=== PATIENT | female | born 1995 | race Caucasian/White ===

== ENCOUNTER → 2020-02-08 12:08 | Outpatient (CLI) | payer OTHER, SELFPAY ==
--- NOTE | 2020-02-08 12:11 | DI.RAD.S_ITS ---
PROCEDURE: XR ANKLE RT MIN 3V INDICATIONS: ankle pain TECHNIQUE: 3 views of the ankle were acquired. COMPARISON: None. FINDINGS: Bones: No fractures or dislocations. Ankle mortise is normally aligned. No suspicious bony lesions. Soft tissues: No tibiotalar joint effusion. Achilles tendon appears normal. IMPRESSION: No trauma found. Dictated by: Ze Hernandes M.D. on 02/08/2020 at 13:52 Approved by: Ze Hernandes M.D. on 02/08/2020 at 13:52
== END ==
LOC: RAD 12:10
PROVIDERS: Referring Provider Family Medicine; Visit Provider Family Medicine
DX: M25.571 Pain in right ankle and joints of right foot (principal)
CPT/HCPCS: 73610

== ENCOUNTER 2020-08-28 13:48 | Emergency (ER) | payer OTHER, SELFPAY ==
[2020-08-28 13:56] VITALS: BP 132/79; PULSE 96; RESP 16; TEMP 36.3; O2SAT 100; BMI 24.9
[2020-08-28 14:34] LABS: COVID19 -Nasal RAPID POSITIVE (Negative)
--- NOTE | 2020-08-28 14:58 | ED_ITS ---
HPI - URI/Sore Throat <VICK Archibald - Last Filed: 08/28/20 15:07> General Chief Complaint: Upper Respiratory Symptoms Stated Complaint: Wants Tested For COVID, Headache, Congestion Time Seen by Provider: 08/28/20 13:57 Source: patient Mode of arrival: Ambulatory Limitations: no limitations History of Present Illness HPI Narrative: The patient is a 25-year-old female nonsmoker who denies pertinent medical history who presents with a chief complaint of coronavirus exposure late last week and development of very mild symptoms yesterday. She developed a mild sore throat your and slight headache. As she denies any fevers muscle aches or chills. She complains of slight fatigue. No cough. No increased respiratory effort is shortness of breath. She states she is here mostly because she works at [employer], where she is exposed to the public and wants to be safe. Denies any abdominal pain nausea vomiting diarrhea. Related Data Home Medications Medication Instructions Recorded Confirmed No Known Home Medications 02/08/20 Allergies Allergy/AdvReac Type Severity Reaction Status Date / Time No Known Drug Allergies Allergy Verified 02/08/20 11:25 Review of Systems <VICK Archibald - Last Filed: 08/28/20 15:07> Review of Systems Narrative: GENERAL: Denies chills, fatigue, malaise, fever, sweats. HEENT: See HPI RESPIRATORY: Denies dyspnea, cough, wheezing, hemoptysis, sputum. CARDIOVASCULAR: Denies chest pain, palpitations, orthopnea, edema, GASTROINTESTINAL: Denies nausea, vomiting, abdominal pain, diarrhea, constipation, melena. : Denies dysuria, frequency, incontinence, hematuria, urinary retention. MUSCULOSKELETAL: denies weakness, joint pain, or bony pain SKIN: Denies rash, skin lesions, or other NEUROLOGIC: Denies weakness, headache, numbness, change in speech, confusion, seizures, incoordination. PSYCHIATRIC: No concerning psychosocial issues. 12 point review of systems is negative except for those stated above Patient History <VICK Archibald - Last Filed: 08/28/20 15:07> Social History Smoking Status: Never smoker Smoking Status: Never smoker alcohol intake frequency: a few times a month Substance Use Type: marijuana Exam <VICK Archibald - Last Filed: 08/28/20 15:07> Narrative Exam Narrative: GENERAL: This is a well-nourished, well-developed patient, in no acute distress HEAD: Atraumatic. Normocephalic. No temporal or scalp tenderness. EYES: Pupils equal round and reactive. Extraocular motions intact. No scleral icterus. No injection or drainage. ENT: Nose without bleeding, purulent drainage or septal hematoma. Throat without erythema, tonsillar hypertrophy or exudate. Uvula midline. Airway patent. NECK: Trachea midline. No JVD or lymphadenopathy. Supple, nontender, no meningeal signs. CARDIOVASCULAR: Regular rate and rhythm RESPIRATORY: Clear to auscultation. Breath sounds equal bilaterally. No wheezes, rales, or rhonchi. No cough. No increased respiratory effort. No accessory muscle use. GASTROINTESTINAL: Abdomen soft, non-tender, nondistended. No guarding. Active bowel sounds all 4 quadrants. EXTREMITIES: No clubbing, cyanosis, or edema. No joint tenderness, effusion, or edema noted. BACK: Nontender without deformity or crepitance. No flank tenderness. NEURO: AOx3. SKIN: No rash or erythema on visible skin Initial Vital Signs Initial Vital Signs: Vital Signs Temperature 97.4 F L 08/28/20 13:56 Pulse Rate 96 H 08/28/20 13:56 Respiratory Rate 16 08/28/20 13:56 Blood Pressure 132/79 08/28/20 13:56 Pulse Oximetry 100 08/28/20 13:56 <Trina Poole DO - Last Filed: 08/31/20 21:00> Initial Vital Signs Initial Vital Signs: Vital Signs Temperature 97.4 F L 08/28/20 13:56 Pulse Rate 96 H 08/28/20 13:56 Respiratory Rate 16 08/28/20 13:56 Blood Pressure 132/79 08/28/20 13:56 Pulse Oximetry 100 08/28/20 13:56 Scores <VICK Archibald - Last Filed: 08/28/20 15:07> GCS [place] coma scale eye opening: Spontaneous Josh coma scale verbal response: Orientated [place] coma scale motor response: Obey commands Josh coma scale total score: 15 Course <VICK Archibald - Last Filed: 08/28/20 15:07> Orders Ordered: ED Orders 08/28/20 14:18 COVID19 Stat Vital Signs Vital signs: Vital Signs - 8 hr 08/28/20 13:56 Temperature 97.4 F L Pulse Rate 96 H Respiratory Rate 16 Blood Pressure 132/79 Pulse Oximetry 100 <Trina Poole DO - Last Filed: 08/31/20 21:00> Orders Ordered: ED Orders 08/28/20 14:18 COVID19 Stat Vital Signs Vital signs: Vital Signs - 8 hr 08/28/20 13:56 Temperature 97.4 F L Pulse Rate 96 H Respiratory Rate 16 Blood Pressure 132/79 Pulse Oximetry 100 MDM - URI/Sore Throat <ELMIRA ArchibaldBC - Last Filed: 08/28/20 15:07> Lab Data Labs: Lab Results 08/28/20 Range/Units 14:18 COVID-19 PCR Positive H (Negative) MDM Narrative Medical decision making narrative: The patient is a 25-year-old female who presents with a chief complaint of covid exposure few days ago, developed symptoms yesterday of mild sore throat and slight headache. She denies any fevers, muscle aches, chills shortness of breath or cough. Will hold off on imaging or further evaluation at this time. Encouraged patient start baby as pirin, home pulse ox, return to the emergency department for any acute concerns increased increased respiratory effort etcetera. Discussed at length comfort and symptomatic care clinic pushing fluids [id number] medications as needed and able. Work note given. The patient has no questions or concerns at this time. Encouraged follow-up with primary care provider coming back to the ER for acute concerns. Patient has been hemodynamically stable, oxygenating well throughout her stay in the ER. <Trina Poole DO - Last Filed: 08/31/20 21:00> Lab Data Labs: Lab Results 08/28/20 Range/Units 14:18 COVID-19 PCR Positive H (Negative) Discharge Plan Departure Patient Disposition: Home Clinical Impression: COVID-19 Instructions: DI for COVID-19 (Suspected or Confirmed ), Coronavirus Disease 2019, Can COVID-19 be prevented? Activity Restrictions/Additional Instructions: Thank you for trusting us with your care today Today you tested positive for COVID-19. I have given you a work note to stay. Please stay home isolate. Wash your hands, cover your cough, and quarantine. Please contact people that you have been in touch with, to let them know that you tested positive for COVID-19 and that they need to quarantine/monitor for any symptoms. I recommend starting a baby aspirin to help prevent blood clots. You can purchase a pulse oximeter to use at home off of a site like [employer]. Please monitor for any acute concerns such as severe shortness of breath etcetera. If you have any acute concerns, such as severe shortness of breath, low oxygen level, please come back to the emergency department. It would be great if you could call us at [phone] before you come in so that we can prepare to take excellent care of you. Prescriptions: No Action No Known Home Medications RF: 0 Referrals: [facility] [Outside] Stand Alone Forms: Work Release Note <Trina Poole, - Last Filed: 08/31/20 21:00> [facility]da Attestation: I was immediately available in the department for consultation. Documentation has been reviewed. I agree with assessment and plan.
== END 2020-08-28 15:03 | disposition home or self-care (01) ==
PROVIDERS: Emergency Provider Nurse Practitioner Family
DX: U07.1 COVID-19 (principal); J02.9 Acute pharyngitis, unspecified; R51.9 Headache, unspecified; R53.83 Other fatigue
CPT/HCPCS: 87635; 99281; 99282